=== PATIENT | male | born 1985 | race Caucasian/White ===

== ENCOUNTER 2021-02-02 11:06 | Emergency (ER) | payer SELFPAY ==
[~2021-02-02] VITALS: Ht 185.4 cm; Wt 104.3 kg
[2021-02-02] MEDS ORDERED: KETOROLAC TROMETHAMINE 15 MG/ML VIAL ONE (11:28)
[2021-02-02] MEDS ORDERED: KETOROLAC TROMETHAMINE INJ 30 MG/ML VIAL IV ONE (11:30)
[2021-02-02] MEDS ORDERED: IV NS 0.9% 1,000 ML BAG IV ONE (11:30)
[2021-02-02 11:38] LABS: BASOPHILS # (AUTO) 0.2 K/uL (0.0-0.2); BASOPHILS % (AUTO) 2.2 % (0.0-2.0); EOSINOPHILS % (AUTO) 6.2 % (0.0-6.0); HEMATOCRIT 44 % (39-51); HEMOGLOBIN 14.8 g/dL (13.5-17.5); LYMPHOCYTES # (AUTO) 1.7 K/uL (0.8-4.8); LYMPHOCYTES % (AUTO) 17.9 % (20.0-44.0); MEAN CORPUSCULAR HGB CONC 34 g/dl (31.0-36.0); MEAN CORPUSCULAR VOLUME 94 fL (80-96); MONOCYTES # (AUTO) 0.3 K/uL (0.1-1.30); MONOCYTES % (AUTO) 3.5 % (2.0-12.0); NEUTROPHILS # (AUTO) 6.5 K/uL (1.8-8.9); NEUTROPHILS % (AUTO) 70.2 % (43.0-81.0); PLATELET COUNT (AUTO) 281 K/uL (150-450); RED BLOOD CELL COUNT(AUTO) 4.71 MIL/uL (4.5-6.0); WHITE BLOOD COUNT (AUTO) 9.3 K/uL (4.3-11.0)
--- NOTE | 2021-02-02 11:38 | NUR ---
Patient came in to the er c/o sudden onset of abd pain 45 mins [employer] from home. On room air, breathing evenly and unlabored. Connected to the monitor and pulse ox. kept comfortable, will continue to monitor accordingly.
--- NOTE | 2021-02-02 11:39 | NUR ---
IV started and blood drawned and sent to lab.
[2021-02-02 11:46] LABS: CALCIUM, SERUM 8.9 mg/dL (8.5-10.1); CREATININE 1.2 mg/dL (0.6-1.3); POTASSIUM 3.3 mmol/L (3.5-5.1)
[2021-02-02 11:52] LABS: ALBUMIN 4.1 g/dL (3.4-5.0); BILIRUBIN,DIRECT 0.1 mg/dL (0.0-0.2); BILIRUBIN,TOTAL 0.5 mg/dL (0.2-1.0); TOTAL PROTEIN, SERUM 7.5 g/dL (6.4-8.2)
[2021-02-02] MEDS ORDERED: IOHEXOL-300 100 ML VIAL IV ONE (12:45)
[2021-02-02] MEDS ORDERED: CT SWABBABLE VALVE TRANS SET 1 EA INFUS.SET MC ONE (12:45)
--- NOTE | 2021-02-02 12:45 | NUR ---
took patient to ct accomapnied by [employer].
--- NOTE | 2021-02-02 12:53 | NUR ---
patient came back from ct
[2021-02-02] MEDS ORDERED: CIPR500T5 PO (13:25)
[2021-02-02] MEDS ORDERED: METR500T PO (13:25)
[2021-02-02 13:42] VITALS: BP 128/87
--- NOTE | 2021-02-02 13:42 | NUR ---
Patient discharged to home in stable condition. Written and verbal after care instructions given. Patient verbalizes understanding of instruction.IV removed. Catheter intact and site benign. Pressure and 4x4 applied to site. No bleeding noted.
== END 2021-02-02 13:42 | disposition home or self-care (01) ==
LOC: ER 11:07
DX: K52.9 Noninfective gastroenteritis and colitis, unspecified (principal); R10.13 Epigastric pain; Z79.899 Other long term (current) drug therapy
CPT/HCPCS: 36415; 74177; 80048; 80076; 83690; 85025; 96361; 96374; 99291; J1885; J7030; Q9967

== ENCOUNTER 2021-11-15 07:43 | Emergency (ER) | payer SELFPAY ==
[~2021-11-15] VITALS: Ht 188 cm; Wt 108.9 kg
[~2021-11-15 07:43] MED LIST: CIPR500T5 PO; METR500T PO
[2021-11-15] MEDS: MORPHINE SULFATE INJ 2 MG/ML DISP.SYRIN IV ONE (08:00)
[2021-11-15] MEDS ORDERED: MAG HYDROX/AL HYDROX/SIMETH 30 ML UDC ONE (08:03)
[2021-11-15] MEDS ORDERED: ONDANSETRON HCL/PF 4 MG/2 ML VIAL ONE (08:03)
[2021-11-15] MEDS ORDERED: FAMOTIDINE/PF INJ 20 MG/2 ML VIAL IV ONE (08:04)
[2021-11-15] MEDS: FAMOTIDINE/PF INJ 20 MG/2 ML VIAL IV ONE (08:10)
[2021-11-15] MEDS: IV NS 0.9% 1,000 ML BAG IV ONE (08:10)
[2021-11-15] MEDS: ONDANSETRON HCL/PF 4 MG/2 ML VIAL IVP ONE (08:11)
[2021-11-15] MEDS: MAG HYDROX/AL HYDROX/SIMETH 30 ML UDC PO ONE (08:12)
[2021-11-15] MEDS: LIDOCAINE VISCOUS 2% UD 15 ML UDC MM ONE (08:12)
--- NOTE | 2021-11-15 08:13 | NUR ---
seen by the ED physicain with orders for NS, zofran, maalox and po viscous lidocaine.
[2021-11-15 08:14] LABS: BASOPHILS # (AUTO) 0.2 K/uL (0.0-0.2); BASOPHILS % (AUTO) 1.5 % (0.0-2.0); EOSINOPHILS % (AUTO) 2.4 % (0.0-6.0); HEMATOCRIT 43 % (39-51); HEMOGLOBIN 14.9 g/dL (13.5-17.5); LYMPHOCYTES # (AUTO) 4.8 K/uL (0.8-4.8); LYMPHOCYTES % (AUTO) 44.8 % (20.0-44.0); MEAN CORPUSCULAR HGB CONC 35 g/dl (31.0-36.0); MEAN CORPUSCULAR VOLUME 91 fL (80-96); MONOCYTES % (AUTO) 9.7 % (2.0-12.0); NEUTROPHILS # (AUTO) 4.5 K/uL (1.8-8.9); NEUTROPHILS % (AUTO) 41.6 % (43.0-81.0); PLATELET COUNT (AUTO) 285 K/uL (150-450); RED BLOOD CELL COUNT(AUTO) 4.77 MIL/uL (4.5-6.0); WHITE BLOOD COUNT (AUTO) 10.7 K/uL (4.3-11.0)
--- NOTE | 2021-11-15 08:27 | NUR ---
pain assessed -down to 6/10.
--- NOTE | 2021-11-15 08:28 | NUR ---
to CT scan
[2021-11-15 08:44] LABS: ALBUMIN 4.3 g/dL (3.4-5.0); BILIRUBIN,DIRECT 0.1 mg/dL (0.0-0.2); BILIRUBIN,TOTAL 0.7 mg/dL (0.2-1.0); CALCIUM, SERUM 9.4 mg/dL (8.5-10.1); CREATININE 1.3 mg/dL (0.6-1.3); POTASSIUM 3.5 mmol/L (3.5-5.1); TOTAL PROTEIN, SERUM 7.8 g/dL (6.4-8.2)
--- NOTE | 2021-11-15 08:48 | NUR ---
back from CT scan, the patient feels better, pain has improved.
--- NOTE | 2021-11-15 08:49 | NUR ---
awaiting for patient to provide urine sample.
--- NOTE | 2021-11-15 09:32 | NUR ---
PT UNALBLE TO PROVIDE URINE AT THIS TIME, URINAL IS AT BEDSIDE.
[2021-11-15] MEDS ORDERED: FAMO-131 PO ×2 (10:09→10:25)
[2021-11-15] MEDS ORDERED: ONDA4TAB5 PO ×2 (10:09→10:25)
--- NOTE | 2021-11-15 10:49 | NUR ---
IV removed. Catheter intact and site benign. Pressure and 4x4 applied to site. No bleeding noted.Patient discharged to home in stable condition. Written and verbal after care instructions given. Patient verbalizes understanding of instruction.
[2021-11-15 10:50] VITALS: BP 154/97
[2021-11-15 11:33] LABS: BILIRUBIN,URINE NEGATIVE (NEGATIVE); COLOR,URINE YELLOW (YELLOW); LEUKOCYTE ESTERASE ,URINE NEGATIVE (NEGATIVE); NITRITE, URINE NEGATIVE (NEGATIVE); PH,URINE 7.5 (5.0-8.0); PROTEIN,URINE NEGATIVE (NEGATIVE); UGLUCOSE NEGATIVE (NEGATIVE); UROBILINOGEN,URINE 0.2 EU/dL (0.2)
[2021-11-15 11:58] LABS: BACTERIA,URINE None seen /HPF (None Seen); RBC,URINE 0-2 /HPF (0-2); SQUAMOUS EPITHELIAL CELL,UR Rare /HPF (None Seen)
== END 2021-11-15 10:51 | disposition home or self-care (01) ==
LOC: ER 07:45
DX: R10.13 Epigastric pain (principal); R10.30 Lower abdominal pain, unspecified; R19.7 Diarrhea, unspecified; Z59.00 Homelessness unspecified
CPT/HCPCS: 36415; 74176; 76705; 80048; 80076; 81001; 83690; 85025; 96361; 96374; 96375; 99284; J2405; J3490; J7030